=== PATIENT | male | born 1960 | race Two or more races ===

== ENCOUNTER 2017-10-22 17:22 | Emergency (ER) | payer OTHER ==
[2017-10-22] MEDS: HYDROCODONE/APAP (10/325) TAB PO (17:53)
[2017-10-22] MEDS: ONDANSETRON (ODT) 4 MG TAB ODT (17:53)
[2017-10-22] MEDS: DIPHTH/TET/ACEL PERTUSS (ADULT) 0.5 ML VIAL IM* (17:54)
== END 2017-10-22 20:33 | disposition short-term general hospital (02) ==
LOC: E/R 17:22
DX: S02.30XA Fracture of orbital floor, unspecified side, initial encounter for closed fracture (principal); Y08.89XA Assault by other specified means, initial encounter; Z23 Encounter for immunization
CPT/HCPCS: 70480; 90471; 90715; 99291-25